=== PATIENT | female | born 1980 | race Caucasian/White ===

== ENCOUNTER 2017-03-31 11:39 | Emergency (ER) | payer SELFPAY ==
[~2017-03-31] VITALS: Ht 154.9 cm; Wt 50.0 kg
[~2017-03-31 11:39] MED LIST: BACTRIM DS1 TAB PO; CEPHALEXIN500 MG OR; CEPHALEXIN500 MG PO; K-DUR/KLOR-CON20 MEQ PO; LORTAB 5 OR; NO MEDS
[2017-03-31] MEDS ORDERED: TRIUMEQ 600-50-1 TAB PO (12:12)
[2017-03-31 12:55] LABS: URINE BILIRUBIN - DIPSTICK NEGATIVE (NEGATIVE); URINE BLOOD DIPSTICK NEGATIVE (NEGATIVE); URINE CLARITY CLEAR; URINE COLOR YELLOW; URINE GLUCOSE - DIPSTICK NEGATIVE (NEGATIVE); URINE KETONE TRACE mg/dL (NEGATIVE); URINE LEUK ESTERASE NEGATIVE (NEGATIVE); URINE NITRITE - DIPSTICK NEGATIVE (Negative); URINE PROTEIN - DIPSTICK NEGATIVE (NEG-TRACE); URINE SPECIFIC GRAVITY >=1.030; URINE UROBILINOGEN - DIPSTICK 0.2 E.U./dL (0.2)
[2017-03-31 12:56] LABS: HEMOGLOBIN 14.1 g/dl (12.0-16.0); IMMATURE GRANULOCYTES 0.3 % (0.0-1.0); MEAN CELL VOLUME 89.1 fL CALC (80.0-100.0); MEAN CORPUSCULAR HGB 30.7 pG CALC (26.0-32.0); MEAN CORPUSCULAR HGB CONC 34.4 g/L CALC (32.0-36.0); NEUT# 2.34 thou/uL (2.00-7.15); RED BLOOD COUNT 4.6 mill/uL (4.20-5.60)
[2017-03-31 13:17] LABS: ALBUMIN 4.4 g/dL (3.2-5.0); ALKALINE PHOSPHATASE 54 u/l (38-126); AMYLASE 90 u/l (30-110); ANION GAP 13 (6-22 (CALC)); BILIRUBIN, TOTAL 0.6 mg/dL (0.0-1.4); BUN 14 mg/dL (7-17); BUN/CREATININE RATIO 16 (12-20 (CALC)); CALCIUM 9.4 mg/dL (8.4-10.2); CARBON DIOXIDE 27 mmol/l (22-30); CHLORIDE 103 mmol/l (95-108); CREATININE 0.9 mg/dL (0.5-1.0); GFR > 60 ML/MIN (>=60 (CALC)); GFR FOR AFR.AMER. > 60 ML/MIN (>=60 (CALC)); GLUCOSE 87 mg/dL (65-105); LIPASE 83 u/l (23-300); POTASSIUM 4.1 mmol/l (3.5-5.1); SGOT/AST 34 u/l (14-36); SGPT/ALT 35 u/l (9-52); SODIUM 138 mmol/l (137-146); TOTAL PROTEIN 7.5 g/dL (6.3-8.2)
[2017-03-31 13:29] LABS: MYOGLOBIN 46 ng/mL (0 - 62)
[2017-03-31] MEDS ORDERED: MIRALAX3350 N1 PO (15:00)
[2017-03-31 15:02] VITALS: BP 97/62
== END 2017-03-31 15:15 | disposition home or self-care (01) | DRG 392 ==
LOC: ED 11:39
PROVIDERS: Emergency Medicine
DX: K59.00 Constipation, unspecified (principal); R11.0 Nausea; R10.33 Periumbilical pain
CPT/HCPCS: Q9967

== ENCOUNTER 2022-03-23 16:14 | Emergency (ER) | payer SELFPAY ==
[~2022-03-23] VITALS: Ht 154.9 cm; Wt 63.0 kg
[~2022-03-23 16:14] MED LIST changes: +MIRALAX3350 N1 PO; +TRIUMEQ 600-50-1 TAB PO
[2022-03-23 16:58] VITALS: BP 105/74
[2022-03-23 17:01] VITALS: BP 112/69
[2022-03-23 17:26] LABS: URINE BILIRUBIN - DIPSTICK NEGATIVE (NEGATIVE); URINE BLOOD DIPSTICK NEGATIVE (NEGATIVE); URINE COLOR YELLOW; URINE GLUCOSE - DIPSTICK NEGATIVE (NEGATIVE); URINE KETONE NEGATIVE (NEGATIVE); URINE LEUK ESTERASE NEGATIVE (NEGATIVE); URINE PROTEIN - DIPSTICK 30 mg/dL (NEG-TRACE); URINE SPECIFIC GRAVITY >=1.030; URINE UROBILINOGEN - DIPSTICK 0.2 E.U./dL (0.2)
[2022-03-23 17:27] LABS: URINE NITRITE - DIPSTICK NEGATIVE (Negative)
[2022-03-23 17:30] LABS: URINE SQUAMOUS EPITHELIAL CELL FEW EPI/hpf (0-FEW)
[2022-03-23 17:45] VITALS: BP 105/70
[2022-03-23] MEDS ORDERED: METHOCARBAMOL500 MG PO (19:01)
[2022-03-23] MEDS ORDERED: NAPROXEN500 MG PO (19:01)
[2022-03-23 19:13] VITALS: BP 105/70
== END 2022-03-23 19:24 | disposition home or self-care (01) | DRG 563 ==
LOC: ED 16:14
PROVIDERS: Nurse Practitioner
DX: S46.911A Strain of unspecified muscle, fascia and tendon at shoulder and upper arm level, right arm, initial encounter (principal); S50.01XA Contusion of right elbow, initial encounter; S09.90XA Unspecified injury of head, initial encounter; Z21 Asymptomatic human immunodeficiency virus [HIV] infection status; F41.9 Anxiety disorder, unspecified; F17.210 Nicotine dependence, cigarettes, uncomplicated; W03.XXXA Other fall on same level due to collision with another person, initial encounter

== ENCOUNTER 2022-11-03 14:29 | Emergency (ER) | payer SELFPAY ==
[~2022-11-03] VITALS: Ht 154.9 cm; Wt 58.8 kg
[~2022-11-03 14:29] MED LIST changes: +METHOCARBAMOL500 MG PO; +NAPROXEN500 MG PO
[2022-11-03 14:42] VITALS: BP 118/76
[2022-11-03 15:00] VITALS: BP 92/63
[2022-11-03] MEDS ORDERED: FLEXERIL5 M1 PO (15:03)
[2022-11-03] MEDS ORDERED: IBUPROFEN600 MG PO (15:03)
[2022-11-03 16:00] VITALS: BP 107/70
[2022-11-03 17:00] VITALS: BP 109/70
[2022-11-03 17:28] VITALS: BP 109/70
== END 2022-11-03 18:45 | disposition home or self-care (01) | DRG 552 ==
LOC: ED 14:29
DX: M54.9 Dorsalgia, unspecified (principal); F17.210 Nicotine dependence, cigarettes, uncomplicated; Z21 Asymptomatic human immunodeficiency virus [HIV] infection status; F41.9 Anxiety disorder, unspecified